=== PATIENT | male | born 1935 | race Caucasian/White ===

== ENCOUNTER 2017-02-14 11:07 | Observation (INO) | payer MEDICARE ==
[~2017-02-14] VITALS: Ht 188 cm; Wt 71.4 kg
[2017-02-14] MEDS ORDERED: ACETAMINOPHEN 325 MG TAB ONE (11:50)
[2017-02-14 11:55] LABS: BASOPHILS % (AUTO) 0.4 % (0.0-5.0); EOSINOPHILS % (AUTO) 1.6 % (0.0-8.0); HEMATOCRIT 43.3 % (42-54); LYMPHOCYTES % (AUTO) 22.9 % (21.0-51.0); MEAN CORPUSCULAR HEMOGLOBIN 29.7 pg (27.0-33.0); MEAN CORPUSCULAR HGB CONC 33.7 g/dL (32.0-36.0); MEAN CORPUSCULAR VOLUME 88.2 fL (79-99); MONOCYTES % (AUTO) 8.6 % (3.0-13.0); NEUTROPHILS % (AUTO) 66.5 % (40.0-77.0); PLATELET COUNT (AUTO) 208 K/uL (130-400); RED BLOOD CELL COUNT(AUTO) 4.91 MIL/uL (4.50-6.20); RED CELL DISTRIBUTION WIDTH 13.1 % (11.0-15.5); WHITE BLOOD COUNT (AUTO) 5.5 K/uL (4.8-10.8)
[2017-02-14 12:04] LABS: POTASSIUM 4.3 mmol/L (3.5-5.1)
[2017-02-14 12:54] LABS: B-TYPE NATRIURETIC PEPTIDE 24 pg/mL (0-100)
[2017-02-14] MEDS ORDERED: HYDRALAZINE HCL 20 MG/ML VIAL IV PRN (15:15)
[2017-02-14] MEDS ORDERED: ONDANSETRON HCL 4 MG/2 ML VIAL IVP PRN (15:15)
[2017-02-14 15:35] VITALS: BP 158/96
[2017-02-14] MEDS ORDERED: AMLO5TAB2 PO (15:38)
[2017-02-14] MEDS ORDERED: AEC81 PO (15:38)
[2017-02-14] MEDS ORDERED: ACET-66 PO (15:38)
[2017-02-14] MEDS ORDERED: IRBE150T27 PO (15:38)
[2017-02-14] MEDS ORDERED: UBID100C10 PO (15:38)
[2017-02-14] MEDS ORDERED: TERB250T51 PO (15:38)
[2017-02-14 16:00] VITALS: BP 158/92
[2017-02-14] MEDS ORDERED: SODIUM CHLORIDE 0.9% 10 ML VIAL IVP PRN (17:00)
[2017-02-14] MEDS ORDERED: MORPHINE SULFATE 2 MG/ML 1ML SYG IVP PRN (17:00)
[2017-02-14] MEDS: NITROGLYCERIN 1GM/1 INCH PACKET TD SCH (17:23)
[2017-02-14 19:00] VITALS: BP 132/71
[2017-02-14] MEDS ORDERED: ENOXAPARIN SODIUM 1 MG/KG SQ SCH (21:00)
[2017-02-14 21:33] LABS: CREATINE KINASE MB 0.6 ng/mL (0.5-3.6); CREATINE KINASE, TOTAL 75 U/L (21-232); MYOGLOBIN 49 ng/mL (10-92); TROPONIN I < 0.04 ng/mL (0.00-0.06)
[2017-02-14] MEDS: ENOXAPARIN SODIUM 80 MG/0.8 ML SQ SCH (22:16)
[2017-02-14 23:34] VITALS: BP 129/70
[2017-02-14] MEDS: ACETAMINOPHEN 325 MG TAB PO PRN (23:44)
[2017-02-15] MEDS: NITROGLYCERIN 1GM/1 INCH PACKET TD SCH ×4 (01:25→17:35)
[2017-02-15 03:00] VITALS: BP 118/66
[2017-02-15 06:21] LABS: CHOLESTEROL 207 mg/dL (<200); HDL CHOLESTEROL 31 mg/dL (29-71); LDL DIRECT 150 mg/dL (0-99); TRIGLYCERIDES 193 mg/dL (30-200)
[2017-02-15 08:03] VITALS: BP 135/74
[2017-02-15 09:10] LABS: CREATINE KINASE MB < 0.5 ng/mL (0.5-3.6); CREATINE KINASE, TOTAL 71 U/L (21-232); MYOGLOBIN 59 ng/mL (10-92); TROPONIN I < 0.04 ng/mL (0.00-0.06)
[2017-02-15] MEDS: ENOXAPARIN SODIUM 80 MG/0.8 ML SQ SCH ×2 (09:30→21:07)
[2017-02-15] MEDS ORDERED: REGADENOSON 0.4 MG/5 ML PF SYG IVP SCH (10:45)
[2017-02-15 12:00] VITALS: BP 123/72
[2017-02-15] MEDS: ASPIRIN 325MG EC TAB 325 MG TABLET.DR PO SCH (15:46)
[2017-02-15] MEDS: PANTOPRAZOLE SODIUM 40 MG TABLET.DR PO SCH (15:46)
[2017-02-15] MEDS: ACETAMINOPHEN 325 MG TAB PO PRN ×2 (15:47→22:36)
[2017-02-15 16:00] VITALS: BP 125/70
[2017-02-15 17:25] LABS: CREATINE KINASE, TOTAL 76 U/L (21-232)
[2017-02-15 17:51] LABS: CREATINE KINASE MB 0.5 ng/mL (0.5-3.6); MYOGLOBIN 83 ng/mL (10-92); TROPONIN I < 0.04 ng/mL (0.00-0.06)
[2017-02-15 19:00] VITALS: BP 109/65
[2017-02-15] MEDS ORDERED: AMLODIPINE BESYLATE 5 MG TAB PO SCH (21:00)
[2017-02-15 21:37] LABS: CREATINE KINASE MB < 0.5 ng/mL (0.5-3.6); CREATINE KINASE, TOTAL 85 U/L (21-232); MYOGLOBIN 59 ng/mL (10-92); TROPONIN I < 0.04 ng/mL (0.00-0.06)
[2017-02-15 23:00] VITALS: BP 105/56
[2017-02-16] MEDS: NITROGLYCERIN 1GM/1 INCH PACKET TD SCH (02:35)
[2017-02-16 03:00] VITALS: BP 109/59
[2017-02-16 08:00] VITALS: BP 118/69
[2017-02-16] MEDS ORDERED: LOSARTAN 50 MG TABLET PO SCH (08:00)
[2017-02-16] MEDS ORDERED: TERBINAFINE HCL 250 MG PO SCH (09:00)
[2017-02-16] MEDS ORDERED: ACETAMINOPHEN EXTRA STRENGTH 500 MG TABLET PO SCH (09:00)
[2017-02-16] MEDS ORDERED: CO Q PO SCH (09:00)
[2017-02-16] MEDS ORDERED: ASPIRIN 81 MG EC TAB PO SCH (09:00)
[2017-02-16] MEDS: ENOXAPARIN SODIUM 80 MG/0.8 ML SQ SCH (09:47)
[2017-02-16] MEDS: PANTOPRAZOLE SODIUM 40 MG TABLET.DR PO SCH (09:47)
[2017-02-16] MEDS: ASPIRIN 325MG EC TAB 325 MG TABLET.DR PO SCH (09:48)
[2017-02-16 11:47] VITALS: BP 131/88
== END 2017-02-16 13:19 | disposition home or self-care (01) ==
LOC: EDH 11:07 → EDHIP 13:30 → 4BH 15:30
PROVIDERS: ADMIT Family Medicine; ATTEND Family Medicine
DX: I25.119 Atherosclerotic heart disease of native coronary artery with unspecified angina pectoris (principal); I10 Essential (primary) hypertension; E78.5 Hyperlipidemia, unspecified; Z95.1 Presence of aortocoronary bypass graft; Z95.0 Presence of cardiac pacemaker; I25.810 Atherosclerosis of coronary artery bypass graft(s) without angina pectoris
CPT/HCPCS: 36415 ×2; 71010; 78452; 80048; 80061; 82550 ×4; 82553 ×4; 83874 ×4; 83880; 84484 ×5; 85025; 93005; 93017; 96372 ×2; 99285; A9500 ×2; G0378 ×48; J1650 ×4; J2785; 96374